=== PATIENT | male | born 1995 | race Caucasian/White ===

== ENCOUNTER 2019-05-07 18:07 | Emergency (ER) | payer SELFPAY ==
[~2019-05-07] VITALS: Ht 190.5 cm; Wt 73.9 kg
[2019-05-07 18:11] VITALS: BP 139/46
--- NOTE | 2019-05-07 18:15 | NUR ---
23 Y/O MALE BIBA ALS C/O POSSIBLE FOCAL SEIZURE LASTING 10-15 SECONDS. PER EMS PTS GIRLFRIEND WITNESSED PT LOSE CONSCIOUSNESS FOR APPROX 10 SECONDS. PT STATES HE "FELT IT COMING ON". PRESENTS WITH GCS 15, AOX4. DENIES PAIN/SOB. ADMITS TO SMOKING "DABS" OF THC IN CAR. RR EVEN AND UNLABORED. PLACED ON THE MONITOR. PT PRESENTS TO ER WITH 16G IN LT AC PLACED BY EMS. VSS MEDHX: DENIES ALLERIGES: BILLIE
--- NOTE | 2019-05-07 18:31 | NUR ---
PT GIVEN URINAL FOR COLLECTION OF URINE
--- NOTE | 2019-05-07 18:38 | NUR ---
DR REY AT BEDSIDE EXAMINING PT
[2019-05-07 18:46] VITALS: BP 139/46
--- NOTE | 2019-05-07 18:47 | NUR ---
Patient discharged with v/s stable. Written and verbal after care instructions given and explained. Patient verbalized understanding. Ambulatory with steady gait. All questions addressed prior to discharge. Advised to follow up with PMD. PT DISCHARGED BY DR REY
== END 2019-05-07 18:47 | disposition home or self-care (01) ==
LOC: MED 18:07
DX: F12.10 Cannabis abuse, uncomplicated (principal)
CPT/HCPCS: 99281